=== PATIENT | male | born 2005 | race Caucasian/White ===

== ENCOUNTER 2023-06-26 16:17 | Emergency (ER) | payer BC | END 2023-06-26 17:55 | disposition left against medical advice (07) | LOC: ER 16:18 | DX: M79.646 Pain in unspecified finger(s) (principal); Z53.21 Procedure and treatment not carried out due to patient leaving prior to being seen by health care provider ==

== ENCOUNTER 2024-06-26 15:52 | Emergency (ER) | payer BC, OTHER ==
[~2024-06-26] VITALS: Ht 175.3 cm; Wt 100.0 kg
[2024-06-26 15:55] VITALS: BP 139/84; PULSE 96; RESP 0; O2SAT 98
[2024-06-26 16:28] VITALS: TEMP 98.5
== END 2024-06-26 16:55 | disposition home or self-care (01) ==
LOC: ER 15:53
DX: S16.1XXA Strain of muscle, fascia and tendon at neck level, initial encounter (principal); F07.81 Postconcussional syndrome; V43.52XA Car driver injured in collision with other type car in traffic accident, initial encounter; Y92.410 Unspecified street and highway as the place of occurrence of the external cause; Y93.89 Activity, other specified; Y99.8 Other external cause status
CPT/HCPCS: 99282

== ENCOUNTER 2025-03-09 14:53 | Emergency (ER) | payer BC, OTHER ==
[~2025-03-09] VITALS: Ht 177.8 cm; Wt 103.6 kg
[2025-03-09 14:55] VITALS: BP 161/87; PULSE 107; RESP 16; TEMP 98.2; O2SAT 97
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
[2025-03-09 16:13] LABS: URINE AMPHETAMINE SCREEN NEGATIVE (Neg); URINE BARBITUATE SCREEN NEGATIVE (Neg); URINE BENZODIAZEPINES SCREEN NEGATIVE (Neg); URINE CANNABINOID SCREEN POSITIVE (Neg); URINE COCAINE SCREEN NEGATIVE (Neg); URINE METHADONE SCREEN NEGATIVE (Neg); URINE OPIATE SCREEN NEGATIVE (Neg); URINE PHENCYCLIDINE SCREEN NEGATIVE (Neg)
== END 2025-03-09 16:41 | disposition home or self-care (01) ==
LOC: ER 14:54
DX: Z00.00 Encounter for general adult medical examination without abnormal findings (principal); Z79.899 Other long term (current) drug therapy
CPT/HCPCS: 80305; 99283